=== PATIENT | male | born 1970 | race Caucasian/White ===

== ENCOUNTER 2016-09-22 11:13 | Emergency (ER) | payer MEDICAID ==
[~2016-09-22] VITALS: Wt 80.0 kg
[2016-09-22] MEDS ORDERED: LIDOCAINE/MYLANTA 40 ML BTL PO STA (12:14)
[2016-09-22] MEDS ORDERED: BELLADONNA/PHENOBARBITAL TAB PO STA (12:14)
[2016-09-22] MEDS ORDERED: SOD CHLORIDE 0.9% 1,000 ML IV STA (12:14)
[2016-09-22] MEDS ORDERED: FAMOTIDINE 20 MG TAB PO STA (12:14)
[2016-09-22] MEDS ORDERED: KETOROLAC 15 MG INJ IV STA (12:14)
[2016-09-22] MEDS ORDERED: ONDANSETRON 4 MG INJ IV STA (12:14)
[2016-09-22 13:05] LABS: BASOPHIL # 0.1 10^3/ul (0.0-0.1); BASOPHILS % 0.9 % (0.0-2.0); EOSINOPHILS % 0.7 % (0.0-7.0); HEMATOCRIT 44.2 % (42.0-52.0); HEMOGLOBIN 14.9 g/dl (14.0-18.0); LYMPHOCYTES # 1.7 10^3/ul (0.8-2.9); LYMPHOCYTES % 28.1 % (15.0-51.0); MEAN CORPUSCULAR HEMOGLOBIN 28.8 pg (29.0-33.0); MEAN CORPUSCULAR HGB CONC 33.7 g/dl (32.0-37.0); MEAN CORPUSCULAR VOLUME 85.3 fl (82.0-101.0); MEAN PLATELET VOLUME 9.3 fl (7.4-10.4); MONOCYTE # 0.5 10^3/ul (0.3-0.9); NEUTROPHIL # 3.7 10^3/ul (1.6-7.5); NEUTROPHILS % 62.1 % (39.0-77.0); PLATELET COUNT 255 10^3/UL (140-415); RED BLOOD COUNT 5.18 10^6/ul (4.70-6.10); RED CELL DISTRIBUTION WIDTH 12.1 % (11.5-14.5); WHITE BLOOD COUNT 5.9 10^3/ul (4.8-10.8)
--- NOTE | 2016-09-22 13:13 | RADRPT ---
PROCEDURE: XR Chest AP portable CLINICAL INDICATION: Abdominal pain TECHNIQUE: An AP portable radiograph of the chest was submitted. COMPARISON: None. FINDINGS: Support Hardware: None Cardiovascular: The cardiovascular silhouette appears unremarkable. Lung Abdi: A focus of discoid atelectasis or linear scarring seen at the left lung base. The lung abdi are otherwise clear. Pleural Spaces: No pneumothorax or pleural effusion is identified. Osseous Structures: Mild degenerative endplate changes are seen to the spine. Soft Tissues: The soft tissues appear generous. IMPRESSION: 1. Linear scar versus focus of discoid atelectasis seen at the left lung base. The lung abdi and pleural spaces are otherwise clear. 2. The cardiovascular structures appear normal. 3. Mild diffuse degenerative spine changes. Physician Mandy Date Time Electronically viewed and signed by Physician Mandy on 09/22/2016 13:13 /
[2016-09-22 13:28] LABS: ALANINE AMINOTRANSFERASE 42 IU/L (13-69); ALBUMIN 4.8 g/dl (3.3-4.9); ALBUMIN/GLOBULIN RATIO 1.37; ALKALINE PHOSPHATASE 74 IU/L (42-121); ANION GAP 20 (8-16); ASPARTATE AMINO TRANSFERASE 24 IU/L (15-46); BILIRUBIN,INDIRECT 0.6 mg/dl (0-1.1); BILIRUBIN,TOTAL 0.6 mg/dl (0.2-1.3); BLOOD UREA NITROGEN 14 mg/dl (7-20); CALCIUM 9.6 mg/dl (8.4-10.2); CARBON DIOXIDE 27 mmol/L (21-31); CHLORIDE 101 mmol/L (97-110); CREATININE 0.71 mg/dl (0.61-1.24); GLUCOSE 102 mg/dl (70-220); POTASSIUM 3.9 mmol/L (3.5-5.1); SODIUM 144 mmol/L (135-144); TOTAL PROTEIN 8.3 g/dl (6.1-8.1)
[2016-09-22 13:39] LABS: TROPONIN-I < 0.012 ng/ml (0.00-0.12)
[2016-09-22] MEDS ORDERED: OMEP40CA6 PO (13:55)
[2016-09-22] MEDS ORDERED: MAG355OR14 PO (13:55)
[2016-09-22] MEDS ORDERED: FAMO40TA52 PO (13:55)
--- NOTE | 2016-09-22 13:57 | ERD ---
ER Documentation Chief Complaint Date/Time DATE: 09/22/16 TIME: 13:55 Chief Complaint CHEST PAIN/PRESSURE, ONSET 2 DAYS, NO SOB HPI 46-year-old man presents with 2 finger width xiphoid pain which she describes as sharp and burning for the last 2 days, he states he has had multiple similar episodes in the past and he states it is made worse by eating. He denies vomiting or diarrhea, no hematemesis, no blood per rectum, no exertional pain, no shortness of breath, no fevers or chills. ROS All systems reviewed and are negative except as per history of present illness. Medications Home Meds Active Scripts Omeprazole* (Omeprazole*) 40 Mg Capsule.dr, 40 MG PO DAILY, #30 CAP Prov:COLE SPENCER MD 09/22/16 Famotidine* (Famotidine*) 40 Mg Tablet, 40 MG PO HS, #30 TAB Prov:COLE SPENCER MD 09/22/16 Mag Hydrox/Al Hydrox/Simeth (Maalox Advanced Suspension) 355 Ml Oral.susp, 2 TSP PO TID for PAIN, #24 OZ Prov:COLE SPENCER MD 09/22/16 Allergies Allergies: Coded Allergies: No Known Allergy (Unverified , 09/22/16) PMhx/Soc Gastritis History of Surgery: Yes (hernia repair) Anesthesia Reaction: No Hx Neurological Disorder: No Hx Respiratory Disorders: No Hx Cardiac Disorders: No Hx Psychiatric Problems: No Hx Miscellaneous Medical Probl: Yes (hernia) Hx Alcohol Use: No Hx Substance Use: No Hx Tobacco Use: No Smoking Status: Never smoker FmHx Family History: No diabetes Physical Exam Vitals Vital Signs Date Time Temp Pulse Resp B/P Pulse Ox O2 Delivery O2 Flow Rate FiO2 09/22/16 14:38 98.0 81 16 112/77 100 Room Air 09/22/16 11:20 96.8 74 17 143/87 99 Physical Exam GENERAL: Well-developed, well-nourished, well-hydrated, in no apparent distress , looks nontoxic in appearance HEENT: Moist mucous membranes, pink conjunctiva, no cervical spine tenderness or step-off deformities, no goiter, no jaundice or icterus, extraocular movements intact without pain. No submandibular induration, and no pharyngeal erythema NEURO: Alert and oriented 3, cranial nerves II through XII intact bilaterally, pupils equal round reactive to light, no focal deficits or facial asymmetry, sensation intact distally Strength 5/5 in upper and lower extremities bilaterally CARDIAC: Regular rate and rhythm, no murmurs rubs or gallops LUNGS: Clear bilaterally no wheezing crackles or stridor ABDOMEN: Soft nontender, no guarding, no rigidity, no rebound, no psoas sign no obturator sign. Normoactive bowel sounds SKIN: Warm and dry to touch, no abrasions, contusions, or hematomas, no lacerations, no ecchymosis, no target lesions, and without ulcers EXTREMITIES: No clubbing cyanosis or edema, calves are bilaterally symmetrical, no Homans sign, no popliteal cord sign. Distal pulses equal and bilateral PSYCH: Normal affect without agitation or irritability Result Diagram: 09/22/16 1235 09/22/16 1235 Results 24 hrs Laboratory Tests Test 09/22/16 12:35 White Blood Count 5.910^3/ul Red Blood Count 5.1810^6/ul Hemoglobin 14.9g/dl Hematocrit 44.2% Mean Corpuscular Volume 85.3fl Mean Corpuscular Hemoglobin 28.8pg Mean Corpuscular Hemoglobin Concent 33.7g/dl Red Cell Distribution Width 12.1% Platelet Count 51858^3/UL Mean Platelet Volume 9.3fl Neutrophils % 62.1% Lymphocytes % 28.1% Monocytes % 8.0% Eosinophils % 0.7% Basophils % 0.9% Nucleated Red Blood Cells % 0.0/100WBC Neutrophils # 3.710^3/ul Lymphocytes # 1.710^3/ul Monocytes # 0.510^3/ul Eosinophils # 0.010^3/ul Basophils # 0.110^3/ul Nucleated Red Blood Cells # 0.010^3/ul Sodium Level 144mmol/L Potassium Level 3.9mmol/L Chloride Level 101mmol/L Carbon Dioxide Level 27mmol/L Anion Gap 20 Blood Urea Nitrogen 14mg/dl Creatinine 0.71mg/dl Glucose Level 102mg/dl Calcium Level 9.6mg/dl Total Bilirubin 0.6mg/dl Direct Bilirubin 0.00mg/dl Indirect Bilirubin 0.6mg/dl Aspartate Amino Transf (AST/SGOT) 24IU/L Alanine Aminotransferase (ALT/SGPT) 42IU/L Alkaline Phosphatase 74IU/L Troponin I < 0.012ng/ml Total Protein 8.3g/dl Albumin 4.8g/dl Globulin 3.50g/dl Albumin/Globulin Ratio 1.37 Lipase 39U/L Current Medications Medications (Trade) Dose Ordered Sig/Venessa Route PRN Reason Start Time Stop Time Status Last Admin Dose Admin Sodium Chloride (NS) 1,000 ml @ 1,000 mls/hr Q1H STAT IV 09/22/16 12:14 09/22/16 13:13 DC 09/22/16 12:58 Ondansetron HCl (Zofran Inj) 4 mg ONCE STAT IV 09/22/16 12:14 09/22/16 12:16 DC 09/22/16 12:59 Famotidine (Pepcid) 40 mg ONCE STAT PO 09/22/16 12:14 09/22/16 12:16 DC 09/22/16 12:58 Miscellaneous Medication (Gi Cocktail (2)) 40 ml ONCE STAT PO 09/22/16 12:14 09/22/16 12:16 DC 09/22/16 12:59 Belladonna/ Phenobarbital () 2 tab ONCE STAT PO 09/22/16 12:14 09/22/16 12:16 DC 09/22/16 12:59 Ketorolac Tromethamine (Toradol) 15 mg ONCE STAT IV 09/22/16 12:14 09/22/16 12:16 DC 09/22/16 12:59 Procedures/MDM IV line was established patient was placed on philanthropy officer rhythm strip revealed a sinus rhythm at about 80 bpm with upright P and T waves. Patient was afebrile. EKG performed, read by me: 77 bpm, normal sinus rhythm, normal axis, no acute ST segment changes, narrow QRS complex, with good R-wave progression in precordial leads. Chest X-ray 1V Interpreted by me: Soft Tissue: No acute abnormalities Bones: No acute abnormalities Mediastinum/Cardiac Silhouette/Lungs: No acute abnormalities I administered 1 L normal saline intravenously, Zofran 4 mg IV, GI cocktail 30 cc p.o., Toradol 15 mg IV, famotidine 40 mg p.o., and the GI cocktail 30 cc p.o. with resolution of symptoms. CBC and electrolytes are normal, liver function tests were normal, troponin was negative. Differential diagnoses considered, included but not limited to acute coronary syndrome, pulmonary embolism, aortic dissection, abdominal aortic aneurysm, sepsis, stroke, meningitis, encephalitis, pneumonia, appendicitis, cholecystitis , bowel obstruction, pyelonephritis, nephrolithiasis, cystitis, as well as metabolic, hematologic, and electrolyte abnormalities. As well as abscess, cellulitis, fractures, and dislocations. Patient feels much better at this time, and vital signs are normal, symptoms have improved. I did give strict instructions to return to the ED if symptoms continue or worsen, patient will otherwise follow-up with primary care physician. Patient understood instructions and agreed to plan. Disclaimer: Inadvertent spelling and grammatical errors are likely due to EHR/ dictation software use and do not reflect on the overall quality of patient care. Also, please note that the electronic time recorded on this note does not necessarily reflect the actual time of the patient encounter. Departure Diagnosis: Primary Impression: Chest pain Chest pain type: unspecified Qualified Code: R07.9 - Chest pain, unspecified type Additional Impression: Gastritis Gastritis type: unspecified gastritis Chronicity: acute Gastritis bleeding : without bleeding Qualified Code: K29.00 - Acute gastritis without hemorrhage, unspecified gastritis type Condition: Good Patient Instructions: Chest Pain, Uncertain Cause, Gastritis Vs. Ulcer COLE SPENCER MD Sep 22, 2016 13:57
[2016-09-22 14:38] VITALS: BP 112/77; PULSE 81; RESP 16; TEMP 98
== END 2016-09-22 14:39 | disposition home or self-care (01) ==
LOC: E/R 11:13
DX: R07.89 Other chest pain (principal); K29.00 Acute gastritis without bleeding
CPT/HCPCS: 36415; 71010; 80053; 83690; 84484; 85025; 93005; 96374; 96375; J1885; J2405; J7030; Z7502; Z7610